=== PATIENT | male | born 1990 | race American Indian/Alaskan Native ===

== ENCOUNTER 2018-07-22 21:05 | Emergency (ER) | payer SELFPAY ==
[2018-07-22 22:16] VITALS: BP 132/91
--- NOTE | 2018-07-23 03:50 | Emergency Department Report ---
Chief Complaint: Urogenital-Male Stated Complaint: PENILE D/C Time Seen by Provider: 07/23/18 02:34 - HPI History of Present Illness: 27 throughout male presents to the emergency room complaining of penile discharge and burning 3 days. Patient denies any nausea vomiting no fever no chills, no abdominal pain. Patient is sexually active with females unprotected. - Exam Vital Signs: Vital Signs 07/22/18 22:12 Temperature 97.9 F Pulse Rate 58 L Respiratory 16 Rate Blood Pressure 132/91 O2 Sat by Pulse 100 Oximetry Physical Exam: Patient is alert and oriented 3 no acute distress. Cardiovascular S1-S2 regular rate and rhythm Respiratory clear to auscultation bilateral abdomen soft nontender nondistended MSE screening note: Focused history and physical exam performed. Due to findings the following was ordered: Patient's been evaluated by this provider should consider non-medical emergency screening. Discussed with patient that he can be evaluated and treated at the health department. ED Disposition for MSE Disposition: MED SCREENING EXAM-LEFT Condition: Stable Referrals: PRIMARY CARE [Primary Care Provider] - 3-5 Days
== END 2018-07-23 03:34 | disposition left against medical advice (07) ==
LOC: ED 21:05
DX: R36.9 Urethral discharge, unspecified (principal); Z53.21 Procedure and treatment not carried out due to patient leaving prior to being seen by health care provider
CPT/HCPCS: 99281